=== PATIENT | female | born 1945 | race Caucasian/White ===

== ENCOUNTER 2018-03-20 13:17 | Emergency (ER) | payer MEDICARE ==
--- NOTE | 2018-03-20 14:17 | UC ---
Respiratory Complaint HPI - HPI Summary HPI Summary: 72 y/o female presents to the urgent care c/o productive cough for the past 2 weeks. Pt reports symptoms started w/ common cold, but it has worsen despite taking OTC medication. Phlegm is now yellowish and she feels Lf ear pressure. Cough is not allowing her to sleep well. Pt had fever at the beginning. Pt denies SOB,wheezing, chest pain, abdominal pain, N/V/D. - History of Current Complaint Chief Complaint: UCRespiratory Stated Complaint: COUGH, AND CHEST CONGESTION Time Seen by Provider: 03/20/18 14:05 Hx Obtained From: Patient Onset/Duration: Gradual Onset, Lasting Weeks - 2 weeks Timing: Intermittent Episodes Severity Initially: Mild Severity Currently: Mild Pain Intensity: 3 Pain Scale Used: 0-10 Numeric Character: Cough: Productive, Sputum Description: - yellowish Alleviating Factors: Bronchodilator, OTC Meds Associated Signs And Symptoms: Positive: Nasal Congestion Related History: Seasonal Allergies - Risk Factors Pulmonary Embolism Risk Factors: Negative Cardiac Risk Factors: Negative Pseudomonas Risk Factors: Negative Tuberculosis Risk Factors: Negative - Allergies/Home Medications Allergies/Adverse Reactions: Allergies Allergy/AdvReac Type Severity Reaction Status Date / Time Adhesive Tape Allergy Unknown Verified 03/20/18 13:38 Reaction Details ciprofloxacin Allergy Unknown Verified 03/20/18 13:38 Reaction Details Penicillins Allergy Unknown Verified 03/20/18 13:38 Reaction Details pregabalin Allergy Hives Verified 03/20/18 13:38 CONTRAST DYE Allergy Severe Nausea Uncoded 03/20/18 13:38 Home Medications: Home Medications Azelastine 0.05% (OPHTH)(NF) [Optivar 0.05% (NF)] 1 drop BOTH EYES BID 03/20/18 [History Confirmed 03/20/18] Cholecalciferol TAB* [Vitamin D TAB*] 2,000 units PO DAILY 03/20/18 [History Confirmed 03/20/18] Fluticas/Salmet 230/21 HFA(NF) [Advair HFA 23O/21 (NF)] 2 puff INH BID 03/20/18 [History Confirmed 03/20/18] Fluticasone NASAL SPRAY 50MCG* [Flonase NASAL SPRAY 50MCG*] 1 spray BOTH NARES DAILY 03/20/18 [History Confirmed 03/20/18] L.acidoph,Paracasei, B.lactis [Probiotic] 1 each PO DAILY 03/20/18 [History Confirmed 03/20/18] Levomefolate/Algal Oil [Deplin-Algal Oil 15 mg Capsule] 15 mg PO DAILY 03/20/18 [History Confirmed 03/20/18] Magnesium Oxide [Magnesium] 250 mg PO DAILY 03/20/18 [History Confirmed 03/20/18 ] lamoTRIgine TAB(*) [Lamictal TAB(*)] 100 mg PO BEDTIME 03/20/18 [History Confirmed 03/20/18] PMH/Surg Hx/FS Hx/Imm Hx Previously Healthy: Yes Cardiovascular History: Hypertension Respiratory History: Asthma GI/ History: Gastroesophageal Reflux Psychological History: Depression Cancer History: Breast Cancer - Surgical History Surgical History: Yes Surgery Procedure, Year, and Place: LAPAROSCOPIC SURGERY FOR UTERINE VARICOSITIES - Family History Known Family History: Positive: Cardiac Disease, Diabetes Family History: colon cancer, breast cancer - Social History Occupation: Retired Lives: With Family Alcohol Use: None Substance Use Type: None Smoking Status (MU): Never Smoked Tobacco - Immunization History Most Recent Influenza Vaccination: 07/2014 Most Recent Tetanus Shot: up to date Most Recent Pneumonia Vaccination: has received with in the last 5 years per pt Review of Systems Constitutional: Negative Skin: Negative Eyes: Negative ENT: Nasal Discharge Respiratory: Cough - productive yellowish Cardiovascular: Negative Gastrointestinal: Negative Genitourinary: Negative Motor: Negative Neurovascular: Negative Musculoskeletal: Negative Neurological: Negative Psychological: Negative Is Patient Immunocompromised?: No All Other Systems Reviewed And Are Negative: Yes Physical Exam - Summary Physical Exam Summary: Vital Signs Reviewed: Yes General: well developed, well nourished female sitting in the examining table w/ o any apparent distress Eyes: Positive: Conjunctiva Clear - PERRLA, EOMI, fundi grossly normal ENT: Positive: Normal ENT inspection, Hearing grossly normal, Pharynx normal, Nasal congestion - edematous and erythematous nasal mucosa, Nasal drainage - yellowish drainage, TMs normal. Negative: Tonsillar swelling, Tonsillar exudate Neck: Positive: Supple, Nontender, No Lymphadenopathy Respiratory: no orthopnea or dyspnea. Able to speak in full sentences, no retractions or accessory muscle use, no tripod position, stridor, or head bobbing. Positive breath sounds bilaterally, Posterior upper lungs w/ mild rhonchi, no crackle or rales, no wheezes. Cardiovascular: Positive: RRR, No Murmur, Pulses Normal, Brisk Capillary Refill Abdomen Description: Positive: Nontender, No Organomegaly, Soft. Negative: CVA Tenderness (R), CVA Tenderness (L) Bowel Sounds: Positive: Present Musculoskeletal Exam: Normal Musculoskeletal: Positive: Strength Intact, ROM Intact, No Edema Neurological Exam: Normal Psychological Exam: Normal Skin Exam: Normal Triage Information Reviewed: Yes Vital Signs: Initial Vital Signs Temp 97.8 F 03/20/18 13:31 Pulse 90 03/20/18 13:31 Resp 16 03/20/18 13:31 BP 170/76 03/20/18 13:31 Pulse Ox 94 03/20/18 13:31 UC Diagnostic Evaluation - Laboratory O2 Sat by Pulse Oximetry: 94 Respiratory Course/Dx - Course Course Of Treatment: 72 y/o female presents to the urgent care c/o productive cough for the past 2 weeks. Pt reports symptoms started w/ common cold, but it has worsen despite taking OTC medication. Phlegm is now yellowish and she feels LF ear pressure. Cough is not allowing her to sleep well. Pt had fever at the beginning. Pt denies SOB,wheezing, chest pain, abdominal pain, N/V/D. Hx obtained. Pt w/ mild Posterior uuper lungs rhonchi on examination. Pt with Acute bronchitis. Pt Rx Z-kwesi PO, and Tessalon tabs PO to alleviate bronchospasm. Pt advised to increase fluid intake and eat well. if not improvement or worsening of symptoms to return to the urgent care or f/u with PCP for further management. Pt's BP is elevated today advised to decrease salt in diet, monitor BP and f/u with PCP for further management. Pt understood and agreed with plan of care. - Differential Dx/Diagnosis Differential Diagnosis/HQI/PQRI: Asthma, Bronchitis, Influenza, Sinusitis, Other - pneumonia Provider Diagnoses: 1- Acute bronchitis. 2-Cough. 3-Uncontrolled HTN Discharge - Sign-Out/Discharge Documenting (check all that apply): Discharge/Admit/Transfer - D/C home - Discharge Plan Condition: Stable Disposition: HOME Prescriptions: Azithromyxin KWESI (NF) [Z-Kwesi (Zithromax) 250 mg tabs #6] 2 tab PO .TODAY, THEN 1 DAILY #6 tab Benzonatate CAP* [Tessalon 100 MG CAP*] 100 mg PO TID #21 cap Patient Education Materials: Acute Bronchitis (ED), Low-Sodium Diet (ED) Referrals: Gabo Au MD [Primary Care Provider] - 3 Days Additional Instructions: 1-Please take full course of antibiotic to avoid resistance. 2-Take Tessalon PO tabs as directed and use the albuterol inhaler to alleviate cough. Increase fluid intake, rest and eat well. 3- If symptoms do not improve or worsen or your develop SOB with fever and severe wheezing please go immediately to the ER further evaluation and treatment. 4- F/u with your PCP if not improvement of symptoms in 3 days for further management . 5-Your BP is elevated today. please decrease salt in your diet, monitor BP and if it continues to be elevated please f/u with your PCP for further management - Billing Disposition and Condition Condition: STABLE Disposition: HOME
[2018-03-20 14:42] VITALS: BP 142/75
== END 2018-03-20 15:00 | disposition home or self-care (01) ==
LOC: UCEAST 13:17
DX: J20.9 Acute bronchitis, unspecified (principal); R09.81 Nasal congestion; I10 Essential (primary) hypertension; J45.909 Unspecified asthma, uncomplicated; K21.9 Gastro-esophageal reflux disease without esophagitis; F32.9 Major depressive disorder, single episode, unspecified; Z85.3 Personal history of malignant neoplasm of breast; Z88.1 Allergy status to other antibiotic agents; Z91.041 Radiographic dye allergy status; Z88.0 Allergy status to penicillin; Z91.048 Other nonmedicinal substance allergy status
CPT/HCPCS: 99212; G0463